=== PATIENT | female | born 1995 | race Hispanic/Latino ===

== ENCOUNTER 2019-08-21 09:01 | Emergency (ER) | payer OTHER ==
[2019-08-21 09:18] LABS: BASOPHILS % (AUTO) 0.2 % (0.0-5.0); EOSINOPHILS % (AUTO) 1.7 % (0.0-8.0); HEMATOCRIT 40.9 % (36-48); LYMPHOCYTES % (AUTO) 26.9 % (21.0-51.0); MEAN CORPUSCULAR HEMOGLOBIN 25.8 pg (27.0-33.0); MEAN CORPUSCULAR VOLUME 78.1 fL (79-99); MONOCYTES % (AUTO) 5.5 % (3.0-13.0); NEUTROPHILS % (AUTO) 65.5 % (40.0-77.0); PLATELET COUNT (AUTO) 318 K/uL (130-400); RED BLOOD CELL COUNT(AUTO) 5.24 MIL/uL (4.00-5.50); RED CELL DISTRIBUTION WIDTH 15.8 % (11.0-15.5); WHITE BLOOD COUNT (AUTO) 9.9 K/uL (4.8-10.8)
[2019-08-21 09:26] LABS: CREATININE 0.8 mg/dL (0.5-1.5)
[2019-08-21 09:31] LABS: ALBUMIN 3.3 g/dL (3.5-5.0); BILIRUBIN,TOTAL 0.3 mg/dL (0.2-1.0); TOTAL PROTEIN, SERUM 8.4 g/dL (6.0-8.3)
[2019-08-21] MEDS ORDERED: FAMOTIDINE 20MG TAB 20 MG TAB ONE (09:40)
[2019-08-21] MEDS ORDERED: ONDANSETRON ODT 4 MG TAB ONE (09:40)
[2019-08-21 10:00] LABS: APPEARANCE,URINE Cloudy (CLEAR); BILIRUBIN,URINE Negative (NEGATIVE); COLOR,URINE Dark Yellow (YELLOW); GLUCOSE, URINE (UA) Negative (NEGATIVE); KETONES,URINE Negative (NEGATIVE); LEUKOCYTE ESTERASE ,URINE Negative (NEGATIVE); NITRATE,URINE Negative (NEGATIVE); OCCULT BLOOD,URINE Negative (NEGATIVE); PROTEIN,URINE Trace mg/dL (NEGATIVE); UROBILINOGEN,URINE 0.2 mg/dL (0.2-1.0)
[2019-08-21 10:01] LABS: HCG,QUAL RESULT NEGATIVE (NEGATIVE)
[2019-08-21 10:03] LABS: BACTERIA,URINE Few /HPF (None Seen); MUCUS,URINE Few LPF (None Seen); RBC,URINE 0-1 /HPF (0-1); SQUAMOUS EPITHELIAL CELL,UR Few /HPF (0-2)
[2019-08-21 10:08] LABS: AMPHET/METH SCREEN,URINE NEGATIVE (NEGATIVE); BARBITURATE SCREEN, URINE NEGATIVE (NEGATIVE); BENZODIAZEPINES SCREEN,URINE NEGATIVE (NEGATIVE); CANNABINOID SCREEN,URINE NEGATIVE (NEGATIVE); COCAINE SCREEN,URINE NEGATIVE (NEGATIVE); OPIATE SCREEN,URINE NEGATIVE (NEGATIVE); PHENCYCLIDINE SCREEN,URINE NEGATIVE (NEGATIVE)
== END 2019-08-21 10:46 | disposition home or self-care (01) ==
LOC: EDH 09:01
DX: A08.4 Viral intestinal infection, unspecified (principal)
CPT/HCPCS: 36415; 80053; 80305; 81001; 81025; 85025

== ENCOUNTER → 2019-12-18 | Outpatient (CLI) | payer OTHER ==
[2019-12-18 08:22] LABS: BASOPHILS % (AUTO) 0.5 % (0.0-5.0); EOSINOPHILS % (AUTO) 3.6 % (0.0-8.0); HEMATOCRIT 40.8 % (36-48); LYMPHOCYTES % (AUTO) 37.3 % (21.0-51.0); MEAN CORPUSCULAR HEMOGLOBIN 28.2 pg (27.0-33.0); MEAN CORPUSCULAR HGB CONC 33.3 g/dL (32.0-36.0); MEAN CORPUSCULAR VOLUME 84.5 fL (79-99); MONOCYTES % (AUTO) 5.4 % (3.0-13.0); NEUTROPHILS % (AUTO) 52.8 % (40.0-77.0); PLATELET COUNT (AUTO) 300 K/uL (130-400); RED BLOOD CELL COUNT(AUTO) 4.83 MIL/uL (4.00-5.50); RED CELL DISTRIBUTION WIDTH 13.8 % (11.0-15.5); WHITE BLOOD COUNT (AUTO) 8.3 K/uL (4.8-10.8)
[2019-12-18 08:45] LABS: ALBUMIN 3.2 g/dL (3.5-5.0); BILIRUBIN,TOTAL 0.1 mg/dL (0.2-1.0); CREATININE 0.8 mg/dL (0.5-1.5); POTASSIUM 4.2 mmol/L (3.5-5.1); THYROID STIMULATING HORMONE 2.5 uIU/mL (0.36-3.74); TOTAL PROTEIN, SERUM 7.7 g/dL (6.0-8.3)
== END | disposition home or self-care (01) ==
LOC: LAB 12-11 10:40
PROVIDERS: ATTEND Family Medicine
DX: Z00.01 Encounter for general adult medical examination with abnormal findings (principal); E55.9 Vitamin D deficiency, unspecified; K29.50 Unspecified chronic gastritis without bleeding
CPT/HCPCS: 36415; 80053; 80061; 82306; 83013; 84443; 85025

== ENCOUNTER → 2020-01-09 | Outpatient (CLI) | payer OTHER | END | disposition home or self-care (01) | LOC: RAH 08:52 | PROVIDERS: ATTEND Family Medicine | DX: R00.0 Tachycardia, unspecified (principal) | CPT/HCPCS: 93306; 93356 ==

== ENCOUNTER → 2020-08-19 | Outpatient (CLI) | payer OTHER ==
[2020-08-19 10:28] LABS: ALBUMIN 3.3 g/dL (3.5-5.0); BILIRUBIN,TOTAL 0.2 mg/dL (0.2-1.0); CREATININE 0.7 mg/dL (0.5-1.5); POTASSIUM 4.2 mmol/L (3.5-5.1)
== END | disposition home or self-care (01) ==
LOC: LAB 09:50
PROVIDERS: ATTEND Family Medicine
DX: E55.9 Vitamin D deficiency, unspecified (principal); E78.00 Pure hypercholesterolemia, unspecified; R73.01 Impaired fasting glucose
CPT/HCPCS: 36415; 80053; 80061; 82306; 83036

== ENCOUNTER → 2022-03-10 | Outpatient (CLI) | payer OTHER ==
[2022-03-10 11:06] LABS: BASOPHILS % (AUTO) 0.5 % (0.0-5.0); EOSINOPHILS % (AUTO) 2.4 % (0.0-8.0); HEMATOCRIT 42.4 % (36-48); MEAN CORPUSCULAR HEMOGLOBIN 28.5 pg (27.0-33.0); MEAN CORPUSCULAR HGB CONC 33.3 g/dL (32.0-36.0); MEAN CORPUSCULAR VOLUME 85.8 fL (79-99); MONOCYTES % (AUTO) 4.9 % (3.0-13.0); NEUTROPHILS % (AUTO) 52.1 % (40.0-77.0); PLATELET COUNT (AUTO) 294 K/uL (130-400); RED BLOOD CELL COUNT(AUTO) 4.94 MIL/uL (4.00-5.50); RED CELL DISTRIBUTION WIDTH 13.3 % (11.0-15.5); WHITE BLOOD COUNT (AUTO) 8.2 K/uL (4.8-10.8)
[2022-03-10 11:15] LABS: HEMOGLOBIN A1C 5.9 % (4.0-6.0)
[2022-03-10 11:31] LABS: ALBUMIN 3.9 g/dL (3.5-5.0); CREATININE 0.7 mg/dL (0.5-1.5); POTASSIUM 4.2 mmol/L (3.5-5.1); THYROID STIMULATING HORMONE 1.29 uIU/mL (0.36-3.74); TOTAL PROTEIN, SERUM 8.3 g/dL (6.0-8.3)
== END | disposition home or self-care (01) ==
LOC: LAB 10:00
PROVIDERS: ATTEND Family Medicine
DX: Z00.01 Encounter for general adult medical examination with abnormal findings (principal); E55.9 Vitamin D deficiency, unspecified; E66.09 Other obesity due to excess calories; E78.00 Pure hypercholesterolemia, unspecified
CPT/HCPCS: 36415; 80053; 80061; 82306; 83036; 84443; 85025

== ENCOUNTER → 2022-11-14 | Outpatient (CLI) | payer OTHER ==
[2022-11-14 10:08] LABS: BASOPHILS % (AUTO) 0.3 % (0.0-5.0); HEMATOCRIT 41.5 % (36-48); LYMPHOCYTES % (AUTO) 34.9 % (21.0-51.0); MEAN CORPUSCULAR HEMOGLOBIN 28.2 pg (27.0-33.0); MEAN CORPUSCULAR HGB CONC 32.8 g/dL (32.0-36.0); MEAN CORPUSCULAR VOLUME 86.1 fL (79-99); MONOCYTES % (AUTO) 6.3 % (3.0-13.0); NEUTROPHILS % (AUTO) 55.1 % (40.0-77.0); PLATELET COUNT (AUTO) 264 K/uL (130-400); RED BLOOD CELL COUNT(AUTO) 4.82 MIL/uL (4.00-5.50)
[2022-11-14 14:26] LABS: RAPID PLASMA REAGIN NONREACTIVE (NONREACTIVE)
== END | disposition home or self-care (01) ==
LOC: LAB 08:57
PROVIDERS: ATTEND Obstetrics & Gynecology
DX: Z32.01 Encounter for pregnancy test, result positive (principal)
CPT/HCPCS: 36415; 85025; 86592; 86701; 86762; 86850; 86900; 86901; 87340; 87390

== ENCOUNTER 2022-12-09 19:51 | Emergency (ER) | payer OTHER ==
[~2022-12-09] VITALS: Ht 154.9 cm; Wt 83.5 kg
[2022-12-09 20:38] LABS: BASOPHILS % (AUTO) 0.4 % (0.0-5.0); EOSINOPHILS % (AUTO) 2.5 % (0.0-8.0); HEMATOCRIT 39.2 % (36-48); LYMPHOCYTES % (AUTO) 32.7 % (21.0-51.0); MEAN CORPUSCULAR HGB CONC 33.2 g/dL (32.0-36.0); MEAN CORPUSCULAR VOLUME 84.3 fL (79-99); MONOCYTES % (AUTO) 4.6 % (3.0-13.0); NEUTROPHILS % (AUTO) 59.4 % (40.0-77.0); PLATELET COUNT (AUTO) 274 K/uL (130-400); RED BLOOD CELL COUNT(AUTO) 4.65 MIL/uL (4.00-5.50); RED CELL DISTRIBUTION WIDTH 14.2 % (11.0-15.5); WHITE BLOOD COUNT (AUTO) 10.6 K/uL (4.8-10.8)
[2022-12-09 20:50] LABS: CREATININE 0.6 mg/dL (0.5-1.5); POTASSIUM 3.7 mmol/L (3.5-5.1)
[2022-12-09 21:16] LABS: ALBUMIN 3.5 g/dL (3.5-5.0); TOTAL PROTEIN, SERUM 7.8 g/dL (6.0-8.3)
[2022-12-09 22:00] LABS: APPEARANCE,URINE CLEAR (CLEAR); BILIRUBIN,URINE NEGATIVE (NEGATIVE); COLOR,URINE COLORLESS (YELLOW); GLUCOSE, URINE (UA) 50 mg/dL (NEGATIVE); KETONES,URINE NEGATIVE (NEGATIVE); LEUKOCYTE ESTERASE ,URINE NEGATIVE Leu/uL (NEGATIVE); NITRATE,URINE NEGATIVE (NEGATIVE); OCCULT BLOOD,URINE LARGE (NEGATIVE); PH,URINE 6.5 (5.0-8.0); PROTEIN,URINE NEGATIVE (NEGATIVE); UROBILINOGEN,URINE 0.2 mg/dL (0.2-1.0)
[2022-12-09 22:17] LABS: BACTERIA,URINE RARE /HPF (None Seen); SQUAMOUS EPITHELIAL CELL,UR RARE /HPF (0-2); WBC,URINE 0-1 /HPF (0-1)
[2022-12-09 22:59] VITALS: BP 137/86
== END 2022-12-09 23:28 | disposition home or self-care (01) ==
LOC: EDH 19:51
DX: O20.9 Hemorrhage in early pregnancy, unspecified (principal); Z3A.01 Less than 8 weeks gestation of pregnancy
CPT/HCPCS: 36415; 76801; 80053; 81001; 84702; 85025

== ENCOUNTER 2023-06-13 19:28 | Inpatient (IN) | payer OTHER ==
[~2023-06-13] VITALS: Ht 154.9 cm; Wt 91.6 kg
[2023-06-13] MEDS ORDERED: OXYTOCIN-LR 30 UNITS/500ML 500 ML IV SCH (22:30)
[2023-06-13 23:31] LABS: APPEARANCE,URINE CLEAR (CLEAR); BILIRUBIN,URINE NEGATIVE (NEGATIVE); COLOR,URINE LIGHT-YELLOW (YELLOW); GLUCOSE, URINE (UA) NEGATIVE (NEGATIVE); KETONES,URINE NEGATIVE (NEGATIVE); LEUKOCYTE ESTERASE ,URINE 75 Leu/uL (NEGATIVE); NITRATE,URINE NEGATIVE (NEGATIVE); OCCULT BLOOD,URINE NEGATIVE (NEGATIVE); PROTEIN,URINE 20 mg/dL (NEGATIVE); UROBILINOGEN,URINE 0.2 mg/dL (0.2-1.0)
[2023-06-13 23:33] LABS: HEMATOCRIT 32.9 % (36-48); MEAN CORPUSCULAR HEMOGLOBIN 28.1 pg (27.0-33.0); MEAN CORPUSCULAR HGB CONC 33.4 g/dL (32.0-36.0); MEAN CORPUSCULAR VOLUME 83.9 fL (79-99); RED BLOOD CELL COUNT(AUTO) 3.92 MIL/uL (4.00-5.50); RED CELL DISTRIBUTION WIDTH 15.4 % (11.0-15.5); WHITE BLOOD COUNT (AUTO) 8.4 K/uL (4.8-10.8)
[2023-06-13 23:36] LABS: ADD UA MICROSCOPIC YES
[2023-06-13 23:39] LABS: MUCUS,URINE RARE LPF (None Seen); RBC,URINE 0-1 /HPF (0-1); SQUAMOUS EPITHELIAL CELL,UR FEW /HPF (0-2)
[2023-06-14 00:40] LABS: HIV 1&2 ANTIBODY Non-Reactive (Negative); HIV-1 p24 Antigen Non-Reactive (Negative)
[2023-06-14 04:55] VITALS: BP 158/88
[2023-06-14] MEDS: OXYTOCIN-LR 30 UNITS/500ML 500 ML IV SCH ×3 (05:00→21:50)
[2023-06-14] MEDS ORDERED: OXYTOCIN-LR 30 UNITS/500ML 500 ML IV SCH (05:00)
[2023-06-14] MEDS: LACTATED RINGERS 1000ML 1,000 ML IV PRN ×3 (05:31→17:01)
[2023-06-14] MEDS ORDERED: EPHEDRINE SULFATE 50 MG/ML AMPULE IVP PRN (07:30)
[2023-06-14] MEDS ORDERED: NALOXONE HCL 0.4 MG/1 ML ML IV PRN (07:30)
[2023-06-14] MEDS ORDERED: ROPIVACAINE 0.2% 100ML VIAL 100 ML EP SCH (07:30)
[2023-06-14] MEDS ORDERED: PROMETHAZINE HCL 25 MG/ML 1ML AMPULE IM PRN (07:30)
[2023-06-14] MEDS ORDERED: LACTATED RINGERS 500 ML 500 ML IV PRN (07:30)
[2023-06-14] MEDS ORDERED: MEPERIDINE-PF 50 MG/ML SYG IVP PRN (07:30)
[2023-06-14] MEDS: LABETALOL HCL 100 MG TABLET PO SCH ×2 (11:03→21:34)
[2023-06-14 15:25] LABS: RAPID PLASMA REAGIN NONREACTIVE (NONREACTIVE)
[2023-06-14] MEDS ORDERED: MISOPROSTOL 200 MCG TABLET ONE (20:28)
[2023-06-14] MEDS ORDERED: CARBOPROST TROMETHAMINE 250 MCG/ML AMP IM SCH (21:30)
[2023-06-14] MEDS ORDERED: DIPHENOXYLATE HCL/ATROPINE 2.5/0.025 MG TAB PO ONE (21:30)
[2023-06-14] MEDS ORDERED: ONDANSETRON 4MG INJ IVP PRN (21:30)
[2023-06-14] MEDS ORDERED: ACETAMINOPHEN 325 MG TAB PO PRN (22:00)
[2023-06-14] MEDS ORDERED: WITCH HAZEL 1 PAD TP PRN (22:00)
[2023-06-14] MEDS ORDERED: IBUPROFEN 600 MG TABLET PO PRN (22:00)
[2023-06-14] MEDS ORDERED: ACETAMINOPHEN WITH CODEINE 1 TAB TAB PO PRN (22:00)
[2023-06-14] MEDS ORDERED: LANOLIN 30GM OINTMENT TP PRN (22:00)
[2023-06-14] MEDS ORDERED: BENZOCAINE/LANOLIN/ALOE VERA 60 ML AEROSOL TP PRN (22:00)
[2023-06-15] VITALS: BP 138/79; PULSE 81; RESP 14
[2023-06-15 04:00] VITALS: BP 136/65; PULSE 98; RESP 16
[2023-06-15 06:09] LABS: HEMATOCRIT 29.7 % (36-48); MEAN CORPUSCULAR HEMOGLOBIN 28.5 pg (27.0-33.0); MEAN CORPUSCULAR HGB CONC 34.3 g/dL (32.0-36.0); RED BLOOD CELL COUNT(AUTO) 3.58 MIL/uL (4.00-5.50); RED CELL DISTRIBUTION WIDTH 15.1 % (11.0-15.5); WHITE BLOOD COUNT (AUTO) 15.3 K/uL (4.8-10.8)
[2023-06-15 07:41] VITALS: BP 126/72; PULSE 95; RESP 18
[2023-06-15] MEDS ORDERED: DOCUSATE SODIUM 100 MG CAP PO SCH (09:00)
[2023-06-15] MEDS ORDERED: DIPH,PERTUSS(ACELL),TET VAC/PF 0.5 ML VIAL IM PRN (10:00)
[2023-06-15] MEDS: LABETALOL HCL 100 MG TABLET PO SCH (10:03)
[2023-06-15] MEDS ORDERED: IBUP-2077 PO (11:00)
[2023-06-15 11:46] VITALS: BP 135/80; PULSE 99; RESP 18
[2023-06-15 16:09] VITALS: BP 139/85; PULSE 78; RESP 16
== END 2023-06-15 21:37 | disposition home or self-care (01) | DRG 807 ==
LOC: LDH 20:53 → WSH 06-15 01:05
PROVIDERS: ADMIT Obstetrics & Gynecology; ATTEND Obstetrics & Gynecology
PROC: 10E0XZZ Delivery of Products of Conception, External Approach (ICD-10-PCS; principal; 2023-06-14)
PROC: 10907ZC Drainage of Amniotic Fluid, Therapeutic from Products of Conception, Via Natural or Artificial Opening (ICD-10-PCS; 2023-06-14)
PROC: 3E0R3BZ Introduction of Anesthetic Agent into Spinal Canal, Percutaneous Approach (ICD-10-PCS; 2023-06-14)
PROC: 00HU33Z Insertion of Infusion Device into Spinal Canal, Percutaneous Approach (ICD-10-PCS; 2023-06-14)
DX: O14.04 Mild to moderate pre-eclampsia, complicating childbirth (principal); Z37.0 Single live birth; O13.4 Gestational [pregnancy-induced] hypertension without significant proteinuria, complicating childbirth; Z3A.37 37 weeks gestation of pregnancy
CPT/HCPCS: 36415; 81001; 85027; 86592; 86701; 86850; 86900; 86901; 87088; 87340; 87390; A4314; G0378

== ENCOUNTER → 2023-10-17 | Outpatient (CLI) | payer BC, MEDICAID ==
[~2023-10-17] MED LIST: IBUP-2077 PO
[2023-10-17 08:56] LABS: BASOPHILS # (AUTO) 0.04 K/uL (0.00-0.20); BASOPHILS % (AUTO) 0.5 % (0.0-5.0); EOSINOPHILS # (AUTO) 0.23 K/uL (0.00-0.70); EOSINOPHILS % (AUTO) 2.9 % (0.0-8.0); HEMATOCRIT 40.3 % (36-48); IMMATURE GRANULOCYTE ABSOLUTE 0.03 K/uL (0-1); LYMPHOCYTES # (AUTO) 2.8 K/uL (1.0-4.8); LYMPHOCYTES % (AUTO) 35.9 % (21.0-51.0); MEAN CORPUSCULAR HEMOGLOBIN 27.8 pg (27.0-33.0); MEAN CORPUSCULAR HGB CONC 32.8 g/dL (32.0-36.0); MONOCYTES # (AUTO) 0.4 K/uL (0.1-1.0); MONOCYTES % (AUTO) 5.2 % (3.0-13.0); NEUTROPHILS # (AUTO) 4.3 K/uL (1.8-7.7); NEUTROPHILS % (AUTO) 55.1 % (40.0-77.0); PLATELET COUNT (AUTO) 285 K/uL (130-400); RED BLOOD CELL COUNT(AUTO) 4.74 MIL/uL (4.00-5.50); RED CELL DISTRIBUTION WIDTH 15.3 % (11.0-15.5); WHITE BLOOD COUNT (AUTO) 7.8 K/uL (4.8-10.8)
[2023-10-17 09:05] LABS: APPEARANCE,URINE CLEAR (CLEAR); BILIRUBIN,URINE NEGATIVE (NEGATIVE); COLOR,URINE LIGHT-YELLOW (YELLOW); GLUCOSE, URINE (UA) NEGATIVE (NEGATIVE); KETONES,URINE NEGATIVE (NEGATIVE); LEUKOCYTE ESTERASE ,URINE 25 Leu/uL (NEGATIVE); NITRATE,URINE NEGATIVE (NEGATIVE); OCCULT BLOOD,URINE NEGATIVE (NEGATIVE); PROTEIN,URINE NEGATIVE (NEGATIVE); UROBILINOGEN,URINE 0.2 mg/dL (0.2-1.0)
[2023-10-17 09:06] LABS: ADD UA MICROSCOPIC YES
[2023-10-17 09:08] LABS: HEMOGLOBIN A1C 5.6 % (4.0-6.0)
[2023-10-17 09:17] LABS: SQUAMOUS EPITHELIAL CELL,UR FEW /HPF (0-2)
[2023-10-17 09:26] LABS: ALBUMIN 3.8 g/dL (3.5-5.0); BILIRUBIN,TOTAL 0.3 mg/dL (0.2-1.0); CREATININE 0.7 mg/dL (0.5-1.0); POTASSIUM 4.1 mmol/L (3.5-5.1); THYROID STIMULATING HORMONE 1.45 uIU/mL (0.36-3.74); TOTAL PROTEIN, SERUM 8.3 g/dL (6.0-8.3)
== END | disposition home or self-care (01) ==
LOC: LAB 08:25
PROVIDERS: ATTEND Family Medicine
DX: O16.5 Unspecified maternal hypertension, complicating the puerperium (principal); E66.09 Other obesity due to excess calories; E55.9 Vitamin D deficiency, unspecified; E78.00 Pure hypercholesterolemia, unspecified; R73.01 Impaired fasting glucose; J30.9 Allergic rhinitis, unspecified
CPT/HCPCS: 36415; 80053; 80061; 81001; 82043; 82306; 82570; 83036; 84443; 85025

== ENCOUNTER → 2024-03-08 | Outpatient (CLI) | payer BC, MEDICAID ==
[2024-03-08 09:40] LABS: ALBUMIN 3.8 g/dL (3.5-5.0); BILIRUBIN,TOTAL 0.3 mg/dL (0.2-1.0); CREATININE 0.7 mg/dL (0.5-1.0); POTASSIUM 4.1 mmol/L (3.5-5.1); TOTAL PROTEIN, SERUM 8.2 g/dL (6.0-8.3)
== END | disposition home or self-care (01) ==
LOC: LAB 08:55
PROVIDERS: ATTEND Family Medicine
DX: O16.5 Unspecified maternal hypertension, complicating the puerperium (principal)
CPT/HCPCS: 36415; 80053